=== PATIENT | female | born 2000 ===

== ENCOUNTER 2023-01-13 03:57 | Emergency (ER) | payer OTHER ==
[~2023-01-13] VITALS: Ht 149.9 cm; Wt 51.7 kg
[2023-01-13] MEDS ORDERED: CEPHALEXIN500 MG PO (05:12)
[2023-01-13] MEDS ORDERED: KETO10TA2 PO (05:12)
[2023-01-13] MEDS ORDERED: MUPIROCIN1 G1 TOP (05:12)
== END 2023-01-13 05:20 ==
LOC: ER 03:57
DX: S61.305A Unspecified open wound of left ring finger with damage to nail, initial encounter (principal); W22.8XXA Striking against or struck by other objects, initial encounter; Y93.89 Activity, other specified; Y92.89 Other specified places as the place of occurrence of the external cause